=== PATIENT | male | born 1975 ===

== ENCOUNTER → 2018-04-27 | Emergency (ER) | payer OTHER ==
[~2018-04-27] VITALS: Ht 167.6 cm; Wt 8.6 kg
== END | disposition home or self-care (01) ==
LOC: ER 16:49
DX: S31.31XA Laceration without foreign body of scrotum and testes, initial encounter (principal); W45.8XXA Other foreign body or object entering through skin, initial encounter; Y93.89 Activity, other specified; Y92.098 Other place in other non-institutional residence as the place of occurrence of the external cause; Y99.8 Other external cause status

== ENCOUNTER 2018-05-14 12:04 | Outpatient (CLI) | payer OTHER | END 2018-05-14 15:00 | disposition home or self-care (01) | LOC: SONOGRAMA 12:04 | DX: E11.9 Type 2 diabetes mellitus without complications (principal); S39.94XA Unspecified injury of external genitals, initial encounter ==

== ENCOUNTER 2019-02-10 14:07 | Outpatient (CLI) | payer OTHER | END 2019-02-10 17:00 | disposition home or self-care (01) | LOC: MRI 14:07 | DX: M54.5 Low back pain (principal) | CPT/HCPCS: 72148 ==